=== PATIENT | female | born 1935 | race Caucasian/White ===

== ENCOUNTER 2017-04-23 13:55 | Emergency (ER) | payer OTHER, MEDICAID ==
[~2017-04-23] VITALS: Ht 144.8 cm; Wt 46.3 kg
[~2017-04-23 13:55] MED LIST: ASA81 PO; ASCO500T20 PO; CYAN100067 PO; FERR-57 PO; LIP20 PO; MEMA28CA PO; PANT40SU2 PO; POTA20PA3 PO; RIVA1PAT3 TP; SUCR1ORA2 PO; VITD2000 PO; ZOLP10TA2 PO
[2017-04-23 13:59] VITALS: BP_SYST 129
[2017-04-23 14:37] LABS: BASOPHILS # (AUTO) 0.1 K/uL (0.0-0.2); BASOPHILS % (AUTO) 1.3 % (0.0-2.0); EOSINOPHILS # (AUTO) 0.1 K/uL (0.0-0.4); EOSINOPHILS % (AUTO) 1.1 % (0.0-4.0); HEMATOCRIT 43.1 % (36-48); HEMOGLOBIN 14.1 g/dL (12.0-16.0); LYMPHOCYTES # (AUTO) 1.2 K/uL (1.0-5.5); LYMPHOCYTES % (AUTO) 14.8 % (20.5-51.5); MEAN CORPUSCULAR HEMOGLOBIN 32 pg (27-31); MEAN CORPUSCULAR HGB CONC 33 % (32-36); MEAN CORPUSCULAR VOLUME 98 fL (79.0-98.0); MONOCYTES # (AUTO) 0.6 K/uL (0.0-1.0); MONOCYTES % (AUTO) 7.8 % (1.7-9.3); NEUTROPHILS # (AUTO) 6.3 K/uL (1.8-7.7); PLATELET COUNT (AUTO) 490 K/uL (130-430); RED BLOOD CELL COUNT(AUTO) 4.39 MIL/uL (4.2-6.2); RED CELL DISTRIBUTION WIDTH 12.5 % (9.0-15.0); WHITE BLOOD COUNT (AUTO) 8.3 K/uL (4.8-10.8)
[2017-04-23 14:45] LABS: ANION GAP 7 (5-15); CALCIUM 11.4 mg/dL (8.4-11.0); CHLORIDE 98 mmol/L (98-107); CREATININE 0.65 mg/dL (0.55-1.30); GLUCOSE 126 mg/dL (70-99); POTASSIUM 3.8 mmol/L (3.5-5.1); SODIUM SERUM 134 mmol/L (136-145); UREA NITROGEN, BLOOD 34 mg/dL (8-21)
[2017-04-23 14:53] LABS: ALANINE AMINOTRANSFERASE 23 U/L (12-78); ALBUMIN 4.2 g/dL (3.4-4.8); ASPARTATE AMINOTRANSFERASE 15 U/L (10-37); TOTAL BILIRUBIN 0.4 mg/dL (0.0-1.0); TOTAL PROTEIN, SERUM 8.6 g/dL (6.4-8.3)
[2017-04-23 14:59] LABS: INR 0.9 (0.8-1.2); PROTHROMBIN TIME 10.1 SECS (9.5-12.5)
[2017-04-23 15:23] VITALS: BP_SYST 129
== END 2017-04-23 15:25 | disposition home or self-care (01) ==
LOC: SED 13:55
DX: K92.0 Hematemesis (principal); G30.9 Alzheimer's disease, unspecified; F02.80 Dementia in other diseases classified elsewhere, unspecified severity, without behavioral disturbance, psychotic disturbance, mood disturbance, and anxiety; M81.0 Age-related osteoporosis without current pathological fracture
CPT/HCPCS: 36415; 74000-TC; 80053; 85025; 85610-TC; 99285

== ENCOUNTER 2018-01-14 11:46 | Emergency (ER) | payer OTHER, MEDICAID ==
[~2018-01-14] VITALS: Ht 147.3 cm; Wt 46.3 kg
[~2018-01-14 11:46] MED LIST changes: +DEXL60CA3 PO; -FERR-57 PO; +ISOS30TA6 PO; +LISI-209 PO; +MEMA1CAP3 PO; +MIRA50TA PO; +NITSL SL; +PREG75CA PO; +RIVA1PAT TP
[2018-01-14 11:56] VITALS: BP_SYST 158
[2018-01-14] MEDS ORDERED: cloNIDine HCL 0.1 MG TABLET PO ONE (12:15)
[2018-01-14] MEDS ORDERED: MULT PO (12:32)
[2018-01-14] MEDS ORDERED: CRAN500T PO (12:32)
[2018-01-14] MEDS ORDERED: CRAN1CAP2 PO (12:32)
[2018-01-14 13:00] VITALS: BP_SYST 139
== END 2018-01-14 13:00 | disposition home or self-care (01) ==
LOC: SED 11:46
DX: I10 Essential (primary) hypertension (principal); G30.9 Alzheimer's disease, unspecified; F02.80 Dementia in other diseases classified elsewhere, unspecified severity, without behavioral disturbance, psychotic disturbance, mood disturbance, and anxiety; I21.9 Acute myocardial infarction, unspecified; M81.0 Age-related osteoporosis without current pathological fracture; Z79.82 Long term (current) use of aspirin; Z79.899 Other long term (current) drug therapy
CPT/HCPCS: 99283

== ENCOUNTER 2018-04-13 23:37 | Emergency (ER) | payer OTHER, MEDICAID ==
[~2018-04-13] VITALS: Ht 147.3 cm; Wt 47.6 kg
[~2018-04-13 23:37] MED LIST changes: +CRAN1CAP2 PO; +CRAN500T PO; -MEMA28CA PO; +MULT PO; -PANT40SU2 PO; -RIVA1PAT TP; -RIVA1PAT3 TP; -SUCR1ORA2 PO
[2018-04-13 23:42] VITALS: BP_SYST 153
[2018-04-14] MEDS ORDERED: LISINOPRIL 10 MG TABLET (PRINIVIL) PO ONE (01:15)
[2018-04-14 01:42] LABS: MEAN CORPUSCULAR HEMOGLOBIN 32 pg (27-31); RED CELL DISTRIBUTION WIDTH 12.9 % (9.0-15.0)
[2018-04-14 01:50] LABS: ANION GAP 10 (5-15); CALCIUM 9.3 mg/dL (8.4-11.0); CHLORIDE 94 mmol/L (98-107); CREATININE 0.35 mg/dL (0.55-1.30); GLUCOSE 122 mg/dL (70-99); POTASSIUM 3.5 mmol/L (3.5-5.1); SODIUM SERUM 129 mmol/L (136-145); UREA NITROGEN, BLOOD 16 mg/dL (8-21)
[2018-04-14 01:54] LABS: ALANINE AMINOTRANSFERASE 19 U/L (12-78); ALBUMIN 3.8 g/dL (3.4-4.8); ASPARTATE AMINOTRANSFERASE 22 U/L (10-37); TOTAL BILIRUBIN 0.4 mg/dL (0.0-1.0)
[2018-04-14] MEDS ORDERED: PROCHLORPERAZINE EDISYLATE 10 MG/2 ML VIAL IVP ONE (02:00)
[2018-04-14 02:01] LABS: HEMATOCRIT 38.2 % (36-48); HEMOGLOBIN 12.8 g/dL (12.0-16.0); MEAN CORPUSCULAR HGB CONC 34 % (32-36); MEAN CORPUSCULAR VOLUME 95 fL (79.0-98.0); PLATELET COUNT (AUTO) 269 K/uL (130-430); RED BLOOD CELL COUNT(AUTO) 4.03 MIL/uL (4.2-6.2); WHITE BLOOD COUNT (AUTO) 4.2 K/uL (4.8-10.8)
[2018-04-14 02:34] LABS: BASOPHILS % (MANUAL) 0 % (0-2); EOSINOPHILS % (MANUAL) 4 % (0-7); LYMPHOCYTES % (MANUAL) 35 % (20-46); MONOCYTES % (MANUAL) 13 % (0-11)
[2018-04-14] MEDS ORDERED: hydrALAZINE HCL 20 MG/ML VIAL IVP ONE (02:45)
[2018-04-14 03:30] VITALS: BP_SYST 146
== END 2018-04-14 03:30 | disposition home or self-care (01) ==
LOC: SED 23:37
DX: I10 Essential (primary) hypertension (principal); E87.1 Hypo-osmolality and hyponatremia; G30.9 Alzheimer's disease, unspecified; F02.80 Dementia in other diseases classified elsewhere, unspecified severity, without behavioral disturbance, psychotic disturbance, mood disturbance, and anxiety; M81.0 Age-related osteoporosis without current pathological fracture; I25.2 Old myocardial infarction; Z79.899 Other long term (current) drug therapy
CPT/HCPCS: 36415; 80053; 84484; 85007; 85027; 93005; 96374; 96375; 99285; J0360; J0780

== ENCOUNTER 2018-04-14 23:22 | Emergency (ER) | payer OTHER, MEDICAID ==
[~2018-04-14] VITALS: Ht 147.3 cm; Wt 47.6 kg
[2018-04-14 23:45] VITALS: BP_SYST 157
[2018-04-14 23:56] VITALS: BP_SYST 139
== END 2018-04-14 23:55 | disposition left against medical advice (07) ==
LOC: SED 23:22
DX: I10 Essential (primary) hypertension (principal); Z53.21 Procedure and treatment not carried out due to patient leaving prior to being seen by health care provider